=== PATIENT | female | born 1955 | race Caucasian/White ===

== ENCOUNTER → 2016-10-16 | Outpatient (CLI) | payer OTHER ==
[~2016-10-16] MED LIST: ACHD5005 PO; ATR20T PO; CPR500T PO; DIPH1TAB45 PO; ENAL10TA PO; JUNEL PO; OTC ALLERGY MEDS
--- NOTE | 2016-10-17 20:00 | Diagnostic Imaging Report ---
Bilateral screening mammogram The current study was also evaluated with a Computer Aided Detection (CAD) system. Indication: Screening. No current complaints stated on the questionnaire. COMPARISON: 10/18/15 FINDINGS: The breasts are composed of heterogeneously dense parenchyma which may decrease mammographic sensitivity. There is similar fibroglandular pattern with no developing mass, architectural distortion or suspicious cluster of calcifications seen. Allowing for technique and positional differences, no suspicious change is seen. IMPRESSION: No significant change. ACR BI-RADS Category 2: Benign findings. Result letter will be mailed to the patient. Note: At least 10% of breast cancer is not imaged by mammography. Dictated by: Dictated on workstation # [id number]
== END ==
LOC: RAD 10:55
PROVIDERS: ATTEND Obstetrics & Gynecology
DX: Z12.31 Encounter for screening mammogram for malignant neoplasm of breast (principal)
CPT/HCPCS: 77067

== ENCOUNTER → 2017-10-27 | Outpatient (CLI) | payer OTHER ==
--- NOTE | 2017-10-27 11:15 | Diagnostic Imaging Report ---
INDICATION: Routine screening. COMPARISON: 10/16/2016 and 09/08/2015. TECHNIQUE: 2D and 3D bilateral screening mammography was performed with CAD. FINDINGS: Both breasts remain heterogeneously dense, limiting the sensitivity of mammography. The parenchymal pattern appears stable. No mass or malignant appearing microcalcifications are seen. The axillae are unremarkable. IMPRESSION: No mammographic features suspicious for malignancy are identified. ACR BI-RADS Category 1: Negative. Result letter will be mailed to the patient. Note: At least 10% of breast cancer is not imaged by mammography. Dictated by: Dictated on workstation # [id number]
== END ==
LOC: RAD 08:22
PROVIDERS: ATTEND Obstetrics & Gynecology
DX: Z12.31 Encounter for screening mammogram for malignant neoplasm of breast (principal)
CPT/HCPCS: 77067

== ENCOUNTER → 2017-11-05 | Outpatient (CLI) | payer OTHER ==
--- NOTE | 2017-11-05 12:32 | Diagnostic Imaging Report ---
EXAMINATION: Magnetic resonance imaging of the right knee without intravenous contrast DATE: November 05, 2017. COMPARISON: None. INDICATION: 62-year-old female, right knee pain. TECHNIQUE: Multiplanar, multisequence non contrast enhanced MR imaging was accomplished. FINDINGS: MENISCI: There is a small oblique tear with inferior surface extension involving the body of the medial meniscus best illustrated on coronal proton density sequence image 15. There is signal in the posterior horn of the medial meniscus which does not contact an articular surface and does not meet strict MRI criteria for tear. There is a small free edge tear of the body of the lateral meniscus. LIGAMENTS AND TENDONS: The anterior and posterior cruciate ligaments are intact. The medial collateral ligament is intact. The iliotibial band, mid third lateral capsular ligament, fibular collateral ligament, biceps femoris tendon and conjoined tendon are intact. The quadriceps tendon and patella ligament are intact. JOINT: There is an area of near full-thickness cartilage defect involving the median patellar ridge and lateral aspect of the medial patellar facet with subjacent full-thickness cartilage flap at the bone cartilage interface of the median patellar ridge measuring 5 mm in transverse dimension. The medial and lateral compartment cartilage appears grossly intact. There is no large knee joint effusion. There are low signal foci in the posterior aspect of the knee joint best illustrated on sagittal proton density fat saturation sequence image 16 measuring up to approximately 6 x 3 mm in size likely relating to intra-articular bodies. BONE: There is no acute fracture, bone contusion, or evidence of osteonecrosis. BURSAE AND SOFT TISSUES: There is a ganglion cyst near the posterior knee joint capsule measuring 13 x 9 x 13 mm in size. There is minimal fluid in the popliteal fossa without sizable Roth's cysts. The additional soft tissues are unremarkable in appearance. IMPRESSION: 1. Oblique tear with inferior surface extension involving the body of the medial meniscus. Signal within the posterior horn of the medial meniscus not meeting strict MRI criteria for tear. 2. Small free edge tear involving the body of the lateral meniscus. 3. Intact anterior and posterior cruciate ligaments. Additional ligaments and tendons are intact. 4. Moderate patellofemoral compartment arthritis as described above. Intra-articular bodies posteriorly measuring up to 6 x 3 mm in size. 5. No acute fracture, bone contusion, or evidence of osteonecrosis. Dictated by: Dictated on workstation # [id number]
== END ==
LOC: RAD 10:14
PROVIDERS: ATTEND Orthopaedic Surgery
DX: S83.241A Other tear of medial meniscus, current injury, right knee, initial encounter (principal); S83.281A Other tear of lateral meniscus, current injury, right knee, initial encounter; M17.11 Unilateral primary osteoarthritis, right knee
CPT/HCPCS: 73721

== ENCOUNTER → 2018-11-11 | Outpatient (CLI) | payer OTHER ==
--- NOTE | 2018-11-11 17:55 | Diagnostic Imaging Report ---
INDICATION: Routine screening. Comparison is made with prior mammograms from 10/27/2017 and 10/16/2016. 2-D and 3-D bilateral screening mammography was performed. The current study was also evaluated with a Computer Aided Detection (CAD) system. 3-D tomosynthesis was also performed and reviewed. FINDINGS: Both breasts are heterogeneously dense, limiting the sensitivity of mammography. No mass or malignant-appearing microcalcifications are seen. Axillae are unremarkable. IMPRESSION: No mammographic features suspicious for malignancy are identified. ACR BI-RADS Category 1: Negative. Result letter will be mailed to the patient. Note: At least 10% of breast cancer is not imaged by mammography. Dictated by: Dictated on workstation # [id number]
== END ==
LOC: RAD 14:41
PROVIDERS: ATTEND Obstetrics & Gynecology
DX: Z12.31 Encounter for screening mammogram for malignant neoplasm of breast (principal)
CPT/HCPCS: 77067

== ENCOUNTER 2019-06-20 18:49 | Emergency (ER) | payer OTHER ==
[~2019-06-20] VITALS: Ht 157 cm; Wt 72.1 kg
[2019-06-20] MEDS ORDERED: ASPI-586 PO (19:16)
[2019-06-20] MEDS ORDERED: VENL25TA2 PO (19:17)
[2019-06-20] MEDS ORDERED: NS IV 1000 ML 1,000 ML IV ONE ×2 (19:36→20:48)
--- NOTE | 2019-06-20 19:41 | ED General ---
General Chief Complaint: General Problems/Pain Stated Complaint: HEADACHE/BODY ACHES/POSS FEVER Nursing Triage Note: Patient ambulatory to ER room 10 with complaint of feeling ill x 5 days. Patient states she has had black stools, body aches, headache, cough, nausea, fever and feeling lightheaded x 5 days. Patient states she has been taking OTC Tylenol cold and flu with no relief. Nursing Sepsis Screen: No Definite Risk Source of Information: Patient Exam Limitations: No Limitations History of Present Illness Date Seen by Provider: Jun 20, 2019 Time Seen by Provider: 19:41 Initial Comments 64-year-old female patient presents with complaints of not feeling well for proximally 5 days. Patient reports generalized body aches, headache, cough, nasal congestion, nausea, and fever initially. Patient states that most of the symptoms have resolved but states she is now having dark stools. She does have a h/o an upper GI bleed d/t a gastric ulcer. she does report heartburn and epigastric pain over the last few weeks. Timing/Duration: 4-5 Days, Changing Over Time Modifying Factors: worse with Medication (no improvement with Tylenol) Allergies and Home Medications Allergies Coded Allergies: Lincomycin HCl (Unverified Allergy, Unknown, 09/30/10) Codeine (Verified Allergy, 09/26/10) Lidocaine (Verified Allergy, 09/26/10) fosinopril sodium (Verified Allergy, 09/26/10) methocarbamol (Verified Allergy, 09/26/10) Home Medications Aspirin 81 Mg Tablet.dr, 81 MG PO DAILY, (Reported) Atorvastatin 20 Mg Tablet, 1 EACH PO DAILY, (Reported) Ciprofloxacin 500 Mg Tablet, 1 TAB PO BID Prescribed by: DEIRDRE MOHAN on 09/30/101555 Diphenoxylate Hcl/Atrop Sulf 1 Tab Tablet, 1 EACH PO EVERY 4HRS, (Reported) Enalapril Maleate 10 Mg Tablet, 10 MG PO DAILY, (Reported) Hydrocodone Bit/Acetaminophen 1 Each Tablet, 1-2 EACH PO Q6H PRN Prescribed by: DEIRDRE MOHAN on 09/30/101555 Nitrofurantoin Monohyd/M-Cryst 100 Mg Capsule, 1 TAB PO BID Prescribed by: JHOAN MONTES on 06/20/192115 Omeprazole 40 Mg Capsule.dr, 40 MG PO BID Prescribed by: JHOAN MONTES on 06/20/192115 Ondansetron 8 Mg Tab.rapdis, 8 MG PO Q6H PRN for NAUSEA/VOMITING Prescribed by: JHOAN Gemini JYOTI on 06/20/192115 Venlafaxine HCl 25 Mg Tablet, 25 MG PO DAILY, (Reported) [] , 1 TAB PO DAILY, (Reported) [Otc Allergy Meds] , PRN, (Reported) Patient Home Medication List Home Medication List Reviewed: Yes Review of Systems Review of Systems Constitutional: see HPI EENTM: see HPI Respiratory: see HPI Cardiovascular: No chest pain, No edema, No palpitations, No syncope Gastrointestinal: see HPI, abdominal pain (epigastric pain); No constipation, No diarrhea, No dysphagia, No hematemesis; heartburn; No jaundice; loss of appetite, melena, nausea; No vomiting Genitourinary: No decreased output, No dysuria, No frequency, No hematuria, No pain Musculoskeletal: other (generalized body aches) Psychiatric/Neurological: Headache; Denies Numbness, Denies Paresthesia, Denies Tingling, Denies Weakness Hematologic/Lymphatic: No Symptoms Reported Immunological/Allergic: no symptoms reported All Other Systems Reviewed Negative Unless Noted: Yes (Negative excepted noted.) Past Gtjuxca-Gbnwub-Eporjj Hx Past Med/Social Hx: Reviewed Nursing Past Med/Soc Hx Patient Social History Alcohol Use: Denies Use Recreational Drug Use: No Smoking Status: Current Everyday Smoker Type Used: Cigarettes 2nd Hand Smoke Exposure: Yes Recent Foreign Travel: No Contact w/Someone Who Travel: No Recent Infectious Disease Expo: No Recent Hopitalizations: No Immunizations Up To Date PED Vaccines UTD: Yes Date of Influenza Vaccine: Feb 16, 2019 Seasonal Allergies Seasonal Allergies: No Past Medical History Surgeries: Yes (lap kami 2004, lap carolyn 2003) Gallbladder Respiratory: No Cardiac: Yes High Cholesterol Neurological: No Reproductive Disorders: No Genitourinary: No Gastrointestinal: Yes (hx celiac disease) Gastroesophageal Reflux, Gastrointestinal Bleed, Ulcer Musculoskeletal: No Endocrine: No HEENT: No Cancer: No Psychosocial: No Integumentary: No Blood Disorders: No Family Medical History Reviewed Nursing Family Hx No Pertinent Family Hx Physical Exam Vital Signs Vital Signs - First Documented 06/20/19 18:55 Temp 36.8 Pulse 92 Resp 16 B/P (MAP) 142/92 (109) Pulse Ox 96 O2 Delivery Room Air Capillary Refill : Less Than 3 Seconds Height, Weight, BMI Height: '" Weight: lbs. oz. kg; 29.00 BMI Method: General Appearance: No Apparent Distress, WD/WN Eyes: Bilateral Eye Normal Inspection, Bilateral Eye PERRL, Bilateral Eye EOMI HEENT: PERRL/EOMI, Pharyngeal Erythema; No Scleral Icterus (L), No Scleral Icterus (R), No Tonsillar Exudate; Other (mild nasal congestion. Dry oral mucosa noted.) Neck: Normal Inspection, Non Tender, Supple Respiratory: Lungs Clear, Normal Breath Sounds, No Accessory Muscle Use, No Respiratory Distress Cardiovascular: Regular Rate, Rhythm, No Edema, No Gallop, No JVD, No Murmur, Normal Peripheral Pulses Gastrointestinal: Normal Bowel Sounds, No Organomegaly, Soft; No Distended, No Guarding, No Hepatomegaly, No Rebound; Tenderness (mild epigastric tenderness) Back: Normal Inspection, No CVA Tenderness Extremity: Normal Capillary Refill, No Calf Tenderness, No Pedal Edema Neurologic/Psychiatric: Alert, Oriented x3, Normal Mood/Affect Skin: Normal Color, Warm/Dry Progress/Results/Core Measures Suspected Sepsis Recent Fever Within 48 Hours: Yes Infection Criteria Present: None New/Unexplained Altered Menta: No Sepsis Screen: No Definite Risk SIRS Temperature: Pulse: 92 Respiratory Rate: 16 Laboratory Tests 06/20/19 19:55: White Blood Count 11.7H Blood Pressure 142 /92 Mean: 109 Laboratory Tests 06/20/19 19:55: Creatinine 0.99, INR Comment 0.9, Platelet Count 336, Total Bilirubin 0.3 Results/Orders Lab Results Laboratory Tests Test 06/20/19 19:55 06/20/19 20:03 Range/Units White Blood Count 11.7 H 4.3-11.0 10^3/uL Red Blood Count 4.82 4.35-5.85 10^6/uL Hemoglobin 15.1 11.5-16.0 G/DL Hematocrit 46 35-52 % Mean Corpuscular Volume 96 80-99 FL Mean Corpuscular Hemoglobin 31 25-34 PG Mean Corpuscular Hemoglobin Concent 33 32-36 G/DL Red Cell Distribution Width 13.2 10.0-14.5 % Platelet Count 336 130-400 10^3/uL Mean Platelet Volume 10.7 H 7.4-10.4 FL Neutrophils (%) (Auto) 53 42-75 % Lymphocytes (%) (Auto) 30 12-44 % Monocytes (%) (Auto) 10 0-12 % Eosinophils (%) (Auto) 6 0-10 % Basophils (%) (Auto) 1 0-10 % Neutrophils # (Auto) 6.2 1.8-7.8 X 10^3 Lymphocytes # (Auto) 3.6 1.0-4.0 X 10^3 Monocytes # (Auto) 1.2 H 0.0-1.0 X 10^3 Eosinophils # (Auto) 0.7 H 0.0-0.3 10^3/uL Basophils # (Auto) 0.1 0.0-0.1 10^3/uL Prothrombin Time 12.2 12.2-14.7 SEC INR Comment 0.9 0.8-1.4 Activated Partial Thromboplast Time 34 24-35 SEC Sodium Level 140 135-145 MMOL/L Potassium Level 4.2 3.6-5.0 MMOL/L Chloride Level 106 98-107 MMOL/L Carbon Dioxide Level 23 21-32 MMOL/L Anion Gap 11 5-14 MMOL/L Blood Urea Nitrogen 13 7-18 MG/DL Creatinine 0.99 0.60-1.30 MG/DL Estimat Glomerular Filtration Rate 57 BUN/Creatinine Ratio 13 Glucose Level 143 H 70-105 MG/DL Calcium Level 9.9 8.5-10.1 MG/DL Corrected Calcium 9.7 8.5-10.1 MG/DL Total Bilirubin 0.3 0.1-1.0 MG/DL Aspartate Amino Transf (AST/SGOT) 28 5-34 U/L Alanine Aminotransferase (ALT/SGPT) 39 0-55 U/L Alkaline Phosphatase 118 40-136 U/L Total Protein 7.4 6.4-8.2 GM/DL Albumin 4.2 3.2-4.5 GM/DL Urine Color YELLOW Urine Clarity SL CLOUDY Urine pH 6.5 5-9 Urine Specific [place] 1.010 L 1.016-1.022 Urine Protein NEGATIVE NEGATIVE Urine Glucose (UA) NEGATIVE NEGATIVE Urine Ketones NEGATIVE NEGATIVE Urine Nitrite POSITIVE H NEGATIVE Urine Bilirubin NEGATIVE NEGATIVE Urine Urobilinogen 0.2 < = 1.0 MG/DL Urine Leukocyte Esterase 3+ H NEGATIVE Urine RBC (Auto) TRACE-L NEGATIVE Urine RBC RARE /HPF Urine WBC 10-25 H /HPF Urine Squamous Epithelial Cells 5-10 /HPF Urine Renal Epithelial Cells 5-10 /HPF Urine Crystals NONE /LPF Urine Amorphous Sediment MOD [place]ADE[place] URATES H /LPF Urine Bacteria FEW H /HPF Urine Casts NONE /LPF Urine Mucus NEGATIVE /LPF Urine Culture Indicated YES Micro Results Microbiology 06/20/19 Influenza Types A,B Antigen (PARAMJIT) - Final, Complete My Orders Orders - JHOAN MONTES Ed Iv/Invasive Line Start (06/20/19 19:36) Cbc With Automated Diff (06/20/19 19:36) Comprehensive Metabolic Panel (06/20/19 19:36) Protime With Inr (06/20/19 19:36) Partial Thromboplastin Time (06/20/19 19:36) Ua Culture If Indicated (06/20/19 19:36) Ondansetron Injection (Zofran Injectio (06/20/19 19:45) Ed Iv/Invasive Line Start (06/20/19 19:36) Ns Iv 1000 Ml (Sodium Chloride 0.9%) (06/20/19 19:36) Pantoprazole Injection (Protonix Injecti (06/20/19 19:45) Urine Culture (06/20/19 20:03) Ceftriaxone For Iv Use (Rocephin For I (06/20/19 20:45) Oxymetazoline 0.05% Nasal Manuel Garcia Ii (Afrin 0. (06/20/19 21:00) Ns Iv 1000 Ml (Sodium Chloride 0.9%) (06/20/19 20:48) Acetaminophen Tablet (Tylenol Tablet) (06/20/19 20:48) Medications Given in ED Current Medications Medications Dose Ordered Sig/Jany Route Start Time Stop Time Status Last Admin Dose Admin Ceftriaxone Sodium 1000 mg/ Sterile Water 10 ml @ 200 mls/hr ONCE ONCE IV 06/20/19 20:45 06/20/19 20:47 DC 06/20/19 20:39 200 MLS/HR Ondansetron HCl 4 mg ONCE ONCE IVP 06/20/19 19:45 06/20/19 19:46 DC 06/20/19 20:01 4 MG Pantoprazole 40 mg ONCE ONCE IV 06/20/19 19:45 06/20/19 19:46 DC 06/20/19 20:01 40 MG Sodium Chloride 1,000 ml @ 0 mls/hr Q0M ONCE IV 06/20/19 19:36 06/20/19 19:39 DC 06/20/19 20:00 1,000 MLS/HR Sodium Chloride 1,000 ml @ 0 mls/hr Q0M ONCE IV 06/20/19 20:48 06/20/19 20:51 DC 06/20/19 20:56 1,000 MLS/HR Vital Signs/I&O 06/20/19 06/20/19 18:55 21:36 Temp 36.8 36.6 Pulse 92 57 Resp 16 14 B/P (MAP) 142/92 (109) 152/90 Pulse Ox 96 98 O2 Delivery Room Air Room Air Capillary Refill : Less Than 3 Seconds Blood Pressure Mean: 109 Departure Communication (Admissions) Patient seen and evaluated. Labs obtained. Patient given normal saline, Zofran, Protonix, and Tylenol with improvement in symptoms. Patient was noted to have a UTI and given 1 g Rocephin in the emergency department. Patient reports feeling much better with the medications and IV fluids. We'll plan for discharge to home with follow-up as an outpatient with Dr. Garcia. Have discussed with the patient that she will most likely need to see a general surgeon for upper endoscopy. Patient was given Dr. Quezada's number. She will discuss this with Dr. Garcia. Impression Primary Impression: Urinary tract infection Qualified Codes: N30.00 - Acute cystitis without hematuria Additional Impressions: Gastritis Qualified Codes: K29.70 - Gastritis, unspecified, without bleeding Melena Viral upper respiratory infection Disposition: 01 HOME, SELF-CARE Condition: Improved Departure-Patient Inst. Decision time for Depature: 21:10 Referrals: JUSTICE GARCIA DO (PCP) Primary Care Physician JODI GARCIA, SORAYA (Family) Primary Care Physician IZABELLA QUEZADA DO Patient Instructions: Gastritis (DC), Gastrointestinal Bleeding, Ulcer and Gastritis Diet, Urinary Tract Infection, Adult (DC) Add. Discharge Instructions: All discharge instructions reviewed with patient and/or family. Voiced understanding. Medications as instructed. Tylenol over the counter as directed for pain or fever. No ibuprofen, Aleve, or aspirin. Avoid spicy foods, fatty foods, carbonated beverages, caffeinated beverages. Do not eat within 2 hours of lying down. Follow-up with your family practitioner for recheck as an outpatient. They may refer you to a general surgeon for upper endoscopy. Return to the emergency department for worsened symptoms, fever, black stools, rectal bleeding, abdominal swelling, abdominal pain, vomiting blood, or any other concerns. Scripts Nitrofurantoin Monohyd/M-Cryst (Macrobid 100 mg Capsule) 100 Mg Capsule 1 TAB PO BID, #14 CAP 0 Refills Prov: JHOAN MONTES 06/20/19 Ondansetron (Ondansetron Odt) 8 Mg Tab.rapdis 8 MG PO Q6H PRN for NAUSEA/VOMITING, #10 TAB 0 Refills Prov: JHOAN MONTES 06/20/19 Omeprazole (Omeprazole) 40 Mg Capsule.dr 40 MG PO BID, #30 CAP 0 Refills Prov: JHOAN MONTES 06/20/19 Work/School Note: Work Release Form Date Seen in the Emergency Department: Jun 20, 2019 Return to Work: Jun 23, 2019 Restrictions: Return-No Fever (24hrs), Return-No Vomiting(24hrs) JHOAN MONTES Jun 20, 2019 19:41
[2019-06-20] MEDS ORDERED: ONDANSETRON 4 MG/2 ML (SDV) Z0FRAN IVP ONE (19:45)
[2019-06-20] MEDS ORDERED: PANTOPRAZOLE 40 MG (PROTONIX) VIAL IV ONE (19:45)
[2019-06-20 20:04] LABS: BASOPHILS # (AUTO) 0.1 10^3/uL (0.0-0.1); BASOPHILS % (AUTO) 1 % (0-10); EOSINOPHILS # (AUTO) 0.7 10^3/uL (0.0-0.3); EOSINOPHILS % (AUTO) 6 % (0-10); HEMATOCRIT 46 % (35-52); HEMOGLOBIN 15.1 G/DL (11.5-16.0); LYMPHOCYTES # (AUTO) 3.6 X 10^3 (1.0-4.0); LYMPHOCYTES % (AUTO) 30 % (12-44); MEAN CORPUSCULAR HEMOGLOBIN 31 PG (25-34); MEAN CORPUSCULAR HGB CONC 33 G/DL (32-36); MEAN CORPUSCULAR VOLUME 96 FL (80-99); MEAN PLATELET VOLUME 10.7 FL (7.4-10.4); MONOCYTES # (AUTO) 1.2 X 10^3 (0.0-1.0); MONOCYTES % (AUTO) 10 % (0-12); NEUTROPHILS # (AUTO) 6.2 X 10^3 (1.8-7.8); NEUTROPHILS % (AUTO) 53 % (42-75); PLATELET COUNT 336 10^3/uL (130-400); RED CELL DISTRIBUTION WIDTH 13.2 % (10.0-14.5); WHITE BLOOD COUNT 11.7 10^3/uL (4.3-11.0)
[2019-06-20 20:11] LABS: BILIRUBIN,URINE NEGATIVE (NEGATIVE); CLARITY,URINE SL CLOUDY; COLOR,URINE YELLOW; GLUCOSE, URINE (UA) NEGATIVE (NEGATIVE); KETONES,URINE NEGATIVE (NEGATIVE); LEUKOCYTE ESTERASE ,URINE 3+ (NEGATIVE); NITRITE,URINE POSITIVE (NEGATIVE); PH,URINE 6.5 (5-9); PROTEIN,URINE NEGATIVE (NEGATIVE)
[2019-06-20 20:16] LABS: INR 0.9 (0.8-1.4); PROTHROMBIN TIME PATIENT 12.2 SEC (12.2-14.7)
[2019-06-20 20:24] LABS: ALBUMIN 4.2 GM/DL (3.2-4.5); BILIRUBIN,TOTAL 0.3 MG/DL (0.1-1.0); CALCIUM 9.9 MG/DL (8.5-10.1); CREATININE SERUM 0.99 MG/DL (0.60-1.30); POTASSIUM 4.2 MMOL/L (3.6-5.0); TOTAL PROTEIN 7.4 GM/DL (6.4-8.2)
[2019-06-20 20:26] LABS: BACTERIA,URINE FEW /HPF; RBC,URINE RARE /HPF
[2019-06-20 20:27] LABS: AMORPHOUS SEDIMENT,UR MOD AMOR URATES /LPF
[2019-06-20] MEDS ORDERED: cefTRIAXone FOR IV USE 1,000 MG in WATER (STERILE) FOR INJECTION 10 ML IV ONE (20:45)
--- NOTE | 2019-06-20 20:45 | NUR ---
Patient awake and alert, spouse at bedside. Patient complains of headache and right ear pain. Tennille Gipson [employer]ENCE [employer] notified.
[2019-06-20] MEDS ORDERED: ACETAMINOPHEN 500 MG TAB (TYLENOL) PO STA (20:48)
[2019-06-20] MEDS ORDERED: OXYMETAZOLINE (AFRIN) 0.05% NA 30 ML BTL SCH (21:00)
[2019-06-20] MEDS ORDERED: NITR-65 PO (21:16)
[2019-06-20] MEDS ORDERED: OMEP40CA27 PO (21:16)
[2019-06-20] MEDS ORDERED: ONDA8TAB13 PO (21:16)
[2019-06-20 21:36] VITALS: BP 152/90
== END 2019-06-20 21:38 | disposition home or self-care (01) ==
LOC: EDUNIT# 18:49 → ER 18:50
DX: N39.0 Urinary tract infection, site not specified (principal); K29.71 Gastritis, unspecified, with bleeding; E78.00 Pure hypercholesterolemia, unspecified; K21.9 Gastro-esophageal reflux disease without esophagitis; F17.210 Nicotine dependence, cigarettes, uncomplicated; J06.9 Acute upper respiratory infection, unspecified; Z88.1 Allergy status to other antibiotic agents; Z88.5 Allergy status to narcotic agent; Z88.8 Allergy status to other drugs, medicaments and biological substances; Z79.82 Long term (current) use of aspirin
CPT/HCPCS: 36415; 80053; 81000; 85025; 85610; 85730; 87077; 87088; 87804; 96361; 96374; 96375

== ENCOUNTER → 2019-11-26 | Outpatient (CLI) | payer OTHER ==
[~2019-11-26] MED LIST changes: +ASPI-586 PO; +NITR-65 PO; +OMEP40CA27 PO; +ONDA8TAB13 PO; +VENL25TA2 PO
--- NOTE | 2019-11-26 11:13 | Diagnostic Imaging Report ---
INDICATION: Routine screening. COMPARISON is made with prior mammograms from 11/11/2018 and 10/27/2017. 2-D and 3-D bilateral screening mammography was performed with CAD. Both breasts are heterogeneously dense, limiting the sensitivity of mammography. The parenchymal pattern is stable. No mass or malignant appearing microcalcifications are seen. Axillae are unremarkable. IMPRESSION: BI-RADS Category 1 No mammographic features suspicious for malignancy are identified. Dictated by: Dictated on workstation # [id number]
== END ==
LOC: RAD 08:32
PROVIDERS: ATTEND Obstetrics & Gynecology
DX: Z12.31 Encounter for screening mammogram for malignant neoplasm of breast (principal)
CPT/HCPCS: 77063; 77067

== ENCOUNTER 2020-01-13 08:00 | Emergency (ER) | payer OTHER ==
[~2020-01-13] VITALS: Ht 157.4 cm; Wt 81.8 kg
[2020-01-13] MEDS ORDERED: FLUC150T2 (08:18)
[2020-01-13] MEDS ORDERED: AZIT250T12 (08:18)
[2020-01-13] MEDS ORDERED: ONDANSETRON 4 MG/2 ML (SDV) Z0FRAN ONE (08:29)
[2020-01-13] MEDS ORDERED: NS IV 1000 ML 1,000 ML ONE (08:29)
[2020-01-13] MEDS: NS IV 1000 ML 1,000 ML IV STA (08:32)
[2020-01-13] MEDS: ONDANSETRON 4 MG/2 ML (SDV) Z0FRAN IVP ONE (08:32)
--- NOTE | 2020-01-13 08:38 | ED General ---
General Chief Complaint: General Problems/Pain Stated Complaint: HEADACHE;DIZZINESS;WEAKNESS Nursing Triage Note: AMB TO ROOM REPORTS THAT SINCE FRI HAS HAD A HEADACHE AND DIZZY. SAW DR GARCIA YESTERDAY WAS DX WITH SINUS INFECTION AND PLACED ON Z PACK. HAS NOT TAKEN ANYTHING FOR HER HEADACHE. REPORTS IF LYING STILL NOT DIZZY. HAD SAMETHING LAST YEAR Nursing Sepsis Screen: No Definite Risk Source of Information: Patient Exam Limitations: No Limitations (RITU PULIDO) History of Present Illness Date Seen by Provider: Jan 13, 2020 Time Seen by Provider: 08:11 Initial Comments This is a 64 y/o F who presents to the ED with N and "dry heaving" x3 days stating "I dry heaved for 1.5hrs this AM". States her sx onset 3 days with sudden onset "room spinning" dizziness lasting 1-2mins which exacerbated with laying down. Since then she has had N and "dry heaving" every morning. Denies Dizziness at the time of evaluation, but notes weakness "from dry heaving this morning" & R-sided, 09/25 severity DESAI w/o photophobia, aura, phonophobia, or neck stiffness. Has hx of Migraines but states this EDSAI does not feel like a migraine. She also reports some dysuria but no hematuria this weekend (4days ago) but states "not so much since the weekend". Denies Any Abd pain, blood in stool, cough, SOB, CP, F, Chills, myalgias, loss of sense of smell or taste, sore throat, or any possible exposure to COVID-19. She has Hx chronic diarrhea, denies any changes to her bowel habits. Has hx of severe Allergies and recieved Tx "allergy shot" for her allergies yesterday at Dr. Garcia's office and was also put on Azythromycin. Pt is an Active chronic smoker. No further complaints at this time. Timing/Duration: 2-3 Days Severity: Moderate Modifying Factors: improves with Other (None) Associated Systoms: No Chest Pain, No Cough; Diaphoresis (only after "dry heaving"); No Fever/Chills; Headaches; No Loss of Appetite; Nausea/Vomiting; No Shortness of Air; Weakness (RITU PULIDO) Timing/Duration: 2-3 Days Severity: Moderate Associated Systoms: No Chest Pain; Weakness (DEIRDRE MOHAN MD) Allergies and Home Medications Allergies Coded Allergies: Lincomycin HCl (Unverified Allergy, Unknown, 09/30/10) Codeine (Verified Allergy, 09/26/10) Lidocaine (Verified Allergy, 09/26/10) fosinopril sodium (Verified Allergy, 09/26/10) methocarbamol (Verified Allergy, 09/26/10) Home Medications Aspirin 81 Mg Tablet.dr, 81 MG PO DAILY, (Reported) Atorvastatin 20 Mg Tablet, 1 EACH PO DAILY, (Reported) Ciprofloxacin 500 Mg Tablet, 1 TAB PO BID Prescribed by: DEIRDRE MOHAN on 09/30/101555 Diphenoxylate Hcl/Atrop Sulf 1 Tab Tablet, 1 EACH PO EVERY 4HRS, (Reported) Enalapril Maleate 10 Mg Tablet, 10 MG PO DAILY, (Reported) Hydrocodone Bit/Acetaminophen 1 Each Tablet, 1-2 EACH PO Q6H PRN Prescribed by: DEIRDRE MOHAN on 09/30/101555 Omeprazole 40 Mg Capsule.dr, 40 MG PO BID Prescribed by: JHOAN MONTES on 06/20/192115 Ondansetron 8 Mg Tab.rapdis, 8 MG PO Q6H PRN for NAUSEA/VOMITING Prescribed by: JHOAN MONTES on 06/20/192115 Venlafaxine HCl 25 Mg Tablet, 25 MG PO DAILY, (Reported) [Junel 1.5-30] , 1 TAB PO DAILY, (Reported) [Otc Allergy Meds] , PRN, (Reported) Patient Home Medication List Home Medication List Reviewed: Yes (DEIRDRE MOHAN MD) Review of Systems Review of Systems Constitutional: No chills, No diaphoresis; dizziness; No fever; weakness EENTM: No blurred vision, No double vision, No eye pain, No vision loss, No throat pain, No throat swelling Respiratory: No cough, No dyspnea on exertion, No short of breath Cardiovascular: No chest pain, No palpitations Gastrointestinal: No abdominal pain; diarrhea (chronic); No loss of appetite, No melena; nausea, vomiting ("dry heaving") Genitourinary: dysuria; No hematuria Musculoskeletal: No muscle pain, No neck pain Skin: no symptoms reported Psychiatric/Neurological: Headache; Denies Numbness, Denies Paresthesia, Denies Tingling (RITU PULIDO) Constitutional: dizziness, weakness Gastrointestinal: No abdominal pain; diarrhea (chronic) Skin: no symptoms reported Psychiatric/Neurological: Headache; Denies Numbness, Denies Tingling (DEIRDRE MOHAN MD) All Other Systems Reviewed Negative Unless Noted: Yes (DEIRDRE MOHAN MD) Past Noixghr-Vohagh-Grskka Hx Past Med/Social Hx: Reviewed Nursing Past Med/Soc Hx (DEIRDRE MOHAN MD) Patient Social History Alcohol Use: Denies Use Recreational Drug Use: No Smoking Status: Current Everyday Smoker Type Used: Cigarettes 2nd Hand Smoke Exposure: Yes Recent Foreign Travel: No Contact w/Someone Who Travel: No Recent Infectious Disease Expo: No Recent Hopitalizations: No (RITU PULIDO) Immunizations Up To Date PED Vaccines UTD: Yes Date of Influenza Vaccine: Feb 16, 2019 (RITU PULIDO [facility]) Seasonal Allergies Seasonal Allergies: No (RITU PULIDO) Past Medical History Surgeries: Yes (lap kami 2004, lap carolyn 2003) Gallbladder Respiratory: No Cardiac: Yes High Cholesterol Neurological: No Reproductive Disorders: No Genitourinary: No Gastrointestinal: Yes (hx celiac disease) Gastroesophageal Reflux, Gastrointestinal Bleed, Ulcer Musculoskeletal: No Endocrine: No HEENT: No Cancer: No Psychosocial: No Integumentary: No Blood Disorders: No (RITU PULIDO [facility]) Family Medical History Reviewed Nursing Family Hx (DEIRDRE MOHAN MD) No Pertinent Family Hx (RITU PULIDO) Physical Exam Vital Signs Vital Signs - First Documented 01/13/20 08:10 Temp 36.6 Pulse 63 Resp 18 B/P (MAP) 148/85 (106) Pulse Ox 98 O2 Delivery Room Air (DEIRDRE MOHAN MD) Vital Signs Capillary Refill : Less Than 3 Seconds (RITU PULIDO) Height, Weight, BMI Height: '" Weight: lbs. oz. kg; 33.00 BMI Method: General Appearance: No Apparent Distress, Other (appears ill and weak) Eyes: Bilateral Eye Normal Inspection, Bilateral Eye PERRL, Bilateral Eye EOMI HEENT: PERRL/EOMI, TMs Normal, Other (no nystagmus; pharyngeal erythema with cobblestoning) Neck: Normal Inspection, Non Tender, Supple Respiratory: Chest Non Tender, Lungs Clear, Normal Breath Sounds, No Accessory Muscle Use, No Respiratory Distress; No Crackles, No Wheezing Cardiovascular: Regular Rate, Rhythm, No Edema, No Gallop, No Murmur, Normal Peripheral Pulses Gastrointestinal: Normal Bowel Sounds, Non Tender Back: Normal Inspection, No CVA Tenderness Neurologic/Psychiatric: Alert, Oriented x3, No Motor/Sensory Deficits, Normal Mood/Affect; No Disoriented; Other (negative Yusra-Hallpike) Skin: Warm/Dry, Pallor Lymphatic: No Adenopathy ([facility] General Appearance: No Apparent Distress, Other (appears ill and weak) HEENT: PERRL/EOMI, TMs Normal Neck: Non Tender, Supple Respiratory: Lungs Clear, Normal Breath Sounds Cardiovascular: Regular Rate, Rhythm, No Murmur Gastrointestinal: Non Tender, Soft Back: Normal Inspection, No CVA Tenderness Extremity: Non Tender, No Calf Tenderness, No Pedal Edema Neurologic/Psychiatric: Alert, Oriented x3 Skin: Warm/Dry, Pallor (DEIRDRE MOHAN MD) Progress/Results/Core Measures Suspected Sepsis Recent Fever Within 48 Hours: No Infection Criteria Present: None New/Unexplained Altered Menta: No Sepsis Screen: No Definite Risk SIRS Temperature: Pulse: 63 Respiratory Rate: 18 Laboratory Tests 01/13/20 08:28: White Blood Count 14.5H Blood Pressure 148 /85 Mean: 106 Laboratory Tests 01/13/20 08:28: Creatinine 1.02, Platelet Count 298, Total Bilirubin 0.5 ([facility]) Results/Orders Lab Results Laboratory Tests Test 01/13/20 08:28 01/13/20 09:33 Range/Units White Blood Count 14.5 H 4.3-11.0 10^3/uL Red Blood Count 4.36 4.35-5.85 10^6/uL Hemoglobin 13.8 11.5-16.0 G/DL Hematocrit 42 35-52 % Mean Corpuscular Volume 97 80-99 FL Mean Corpuscular Hemoglobin 32 25-34 PG Mean Corpuscular Hemoglobin Concent 33 32-36 G/DL Red Cell Distribution Width 13.7 10.0-14.5 % Platelet Count 298 130-400 10^3/uL Mean Platelet Volume 11.6 H 7.4-10.4 FL Neutrophils (%) (Auto) 82 H 42-75 % Lymphocytes (%) (Auto) 10 L 12-44 % Monocytes (%) (Auto) 6 0-12 % Eosinophils (%) (Auto) 2 0-10 % Basophils (%) (Auto) 0 0-10 % Neutrophils # (Auto) 11.9 H 1.8-7.8 X 10^3 Lymphocytes # (Auto) 1.5 1.0-4.0 X 10^3 Monocytes # (Auto) 0.8 0.0-1.0 X 10^3 Eosinophils # (Auto) 0.3 0.0-0.3 10^3/uL Basophils # (Auto) 0.1 0.0-0.1 10^3/uL Neutrophils % (Manual) 81 % Lymphocytes % (Manual) 13 % Monocytes % (Manual) 5 % Basophils % (Manual) 1 % Spherocytes SLIGHT Sodium Level 138 135-145 MMOL/L Potassium Level 5.2 H 3.6-5.0 MMOL/L Chloride Level 104 98-107 MMOL/L Carbon Dioxide Level 23 21-32 MMOL/L Anion Gap 11 5-14 MMOL/L Blood Urea Nitrogen 12 7-18 MG/DL Creatinine 1.02 0.60-1.30 MG/DL Estimat Glomerular Filtration Rate 55 BUN/Creatinine Ratio 12 Glucose Level 113 H 70-105 MG/DL Calcium Level 9.2 8.5-10.1 MG/DL Corrected Calcium 9.2 8.5-10.1 MG/DL Magnesium Level 2.3 1.6-2.4 MG/DL Total Bilirubin 0.5 0.1-1.0 MG/DL Aspartate Amino Transf (AST/SGOT) 28 5-34 U/L Alanine Aminotransferase (ALT/SGPT) 35 0-55 U/L Alkaline Phosphatase 108 40-136 U/L C-Reactive Protein High Sensitivity 0.13 0.00-0.50 MG/DL Total Protein 7.8 6.4-8.2 GM/DL Albumin 4.0 3.2-4.5 GM/DL Urine Color YELLOW Urine Clarity CLEAR Urine pH 7.0 5-9 Urine Specific [place] 1.010 L 1.016-1.022 Urine Protein TRACE H NEGATIVE Urine Glucose (UA) NEGATIVE NEGATIVE Urine Ketones NEGATIVE NEGATIVE Urine Nitrite NEGATIVE NEGATIVE Urine Bilirubin NEGATIVE NEGATIVE Urine Urobilinogen 0.2 < = 1.0 MG/DL Urine Leukocyte Esterase 2+ H NEGATIVE Urine RBC (Auto) TRACE-I NEGATIVE (DEIRDRE MOHAN MD) My Orders Orders - DEIRDRE MOHAN MD Ns Iv 1000 Ml (Sodium Chloride 0.9%) (01/13/20 08:29) Ondansetron Injection (Zofran Injectio (01/13/20 08:29) Cbc With Automated Diff (01/13/20 08:36) Comprehensive Metabolic Panel (01/13/20 08:36) Hs C Reactive Protein (01/13/20 08:36) Lactic Acid Analyzer (01/13/20 08:36) Blood Culture (01/13/20 08:36) Ondansetron Injection (Zofran Injectio (01/13/20 08:45) Ns Iv 1000 Ml (Sodium Chloride 0.9%) (01/13/20 08:36) Ed Iv/Invasive Line Start (01/13/20 08:36) Ketorolac Injection (Toradol Injection) (01/13/20 08:38) Chest 1 View, Ap/Pa Only (01/13/20 08:38) Magnesium (01/13/20 08:49) Manual Differential (01/13/20 08:28) Urinalysis Dipstick Only (01/13/20 09:33) Urine Culture (01/13/20 10:58) (DEIRDRE MOHAN MD) Medications Given in ED Current Medications Medications Dose Ordered Sig/Jany Route Start Time Stop Time Status Last Admin Dose Admin Ondansetron HCl 4 mg ONCE ONCE IVP 01/13/20 08:45 01/13/20 08:46 DC 01/13/20 08:32 4 MG (DEIRDRE MOHAN MD) Vital Signs/I&O 01/13/20 08:10 Temp 36.6 Pulse 63 Resp 18 B/P (MAP) 148/85 (106) Pulse Ox 98 O2 Delivery Room Air (DEIRDRE MOHAN MD) Vital Signs/I&O Capillary Refill : Less Than 3 Seconds (RITU PULIDO [facility]) Blood Pressure Mean: 106 Progress Note : Time: 08:11 Progress Note Seen and evaluated. Presentation concerning for viral Gastroenteritis, UTI, PNA, and electrolyte imbalance. Will order CBC, CMP, Mg level, UA, and CXR. Will order 4mg of Zofran IV, 30mg of Ketorolac IV, and 1L NS. Will continue to monitor. @0924: Reevaluated. Pt is appears less ill/weak at this time. Reports feeling better. States her Nausea and DESAI are gone; Continues to deny dizziness. Still waiting for Urine sample. Will continue to monitor. (RITU PULIDO [facility]) Progress Note : Progress Note I have seen and evaluated the patient and agree with above except as indicated. I have directed the plan of care. Patient is here with 3 days of worsening diarrhea as well as dry heaving this morning. States that she's had several days of dizziness and was seen by her primary care doctor yesterday where she had an allergy shot which may actually be steroid shot. She was prescribed azithromycin. States overall that she has episodes of sweating when she is getting the dry heaves or diarrhea but denies chest pain with this or breathing problems. Denies COVID related symptoms or contact. Plan as above. Monitor patient. 1125: Feeling better. Concerns about urinary tract infections and patient states that she has this typically. We will go ahead and initiate treatment for that with Rocephin 1 g IV given that she's had nausea and vomiting today and continue outpatient treatment with cephalexin. This was discussed with the patient who agreed. Discharged home with return precautions. Patient verbalize understanding of instructions and agreement with plan. Previous history does reveal sensitive urinary tract infection to cephalosporins. (DEIRDRE MOHAN MD) Diagnostic Imaging Diagonstic Imaging: Xray Plain Films/CT/US/NM/MRI: chest Comments [facility], [place] NAME: MARYRIGO Aminah [facility] REC#: [id number] PT STATUS: REG ER : 1955 PHYSICIAN: DEIRDRE MOHAN MD ADMIT DATE: 01/13/20/ER Signed Date of Exam:01/13/20 CHEST 1 VIEW, AP/PA ONLY Indication: Emesis Comparison is made to study of 09/26/2010. TECHNIQUE: Single AP view of the chest is obtained. FINDINGS: Heart size and pulmonary vascularity are within normal limits, and the lungs are clear, bilaterally. IMPRESSION: Unremarkable chest. Dictated by: Dictated on workstation # [id number] Dict: 01/13/20913 Trans: 01/13/2015 [id number] Interpreted by: ROBERTO CARLOS GUILLEN MD Electronically signed by: ROBERTO CARLOS GUILLEN MD 01/13/20 0915 ([facility] Departure Impression Primary Impression: Urinary tract infection Qualified Codes: N30.00 - Acute cystitis without hematuria Additional Impressions: Dehydration Chronic diarrhea Disposition: 01 HOME, SELF-CARE Condition: Stable Departure-Patient Inst. Decision time for Depature: 11:26 (DEIRDRE MOHAN MD) Referrals: JUSTICE GARCIA DO (PCP) Primary Care Physician JODI GARCIA DNP (Family) Primary Care Physician Patient Instructions: Urinary Tract Infection, Adult (DC), Dehydration, Adult (DC), Diarrhea and Travelers' Diarrhea, Adult (DC) Add. Discharge Instructions: All discharge instructions reviewed with patient and/or family. Voiced understanding. Clear liquid or light diet for the next 24 hours and then advance as tolerated. Drink plenty of fluids. You may take Tylenol/acetaminophen 1000 mg every 8 hours as needed for fever or pain. You may take ibuprofen 400 mg every 8 hours as needed for fever or pain. Follow-up with your DrCinthia in a few days for recheck as needed. Return for worse pain, fever, vomiting, weakness, breathing problems or other concerns as needed. Scripts Ondansetron (Ondansetron Odt) 4 Mg Tab.rapdis 4 MG PO Q6H PRN for NAUSEA/VOMITING, #12 TAB 0 Refills Prov: DEIRDRE MOHAN MD 01/13/20 Cephalexin (Cephalexin) 500 Mg Tablet 500 MG PO BID, #10 TAB 0 Refills Prov: DEIRDRE MOHAN MD 01/13/20 Copy Copies To 1: JUSTICE GARCIA [facility] Jan 13, 2020 08:38 DEIRDRE MOHAN MD Jan 13, 2020 10:33
--- NOTE | 2020-01-13 08:41 | NUR ---
CALLED AND UPDATED
[2020-01-13] MEDS: KETOROLAC 30 MG/ML VIAL IVP STA (08:45)
[2020-01-13 08:53] LABS: BASOPHILS # (AUTO) 0.1 10^3/uL (0.0-0.1); BASOPHILS % (AUTO) 0 % (0-10); EOSINOPHILS # (AUTO) 0.3 10^3/uL (0.0-0.3); EOSINOPHILS % (AUTO) 2 % (0-10); HEMATOCRIT 42 % (35-52); HEMOGLOBIN 13.8 G/DL (11.5-16.0); LYMPHOCYTES # (AUTO) 1.5 X 10^3 (1.0-4.0); LYMPHOCYTES % (AUTO) 10 % (12-44); MEAN CORPUSCULAR HEMOGLOBIN 32 PG (25-34); MEAN CORPUSCULAR HGB CONC 33 G/DL (32-36); MEAN CORPUSCULAR VOLUME 97 FL (80-99); MEAN PLATELET VOLUME 11.6 FL (7.4-10.4); MONOCYTES # (AUTO) 0.8 X 10^3 (0.0-1.0); MONOCYTES % (AUTO) 6 % (0-12); NEUTROPHILS # (AUTO) 11.9 X 10^3 (1.8-7.8); NEUTROPHILS % (AUTO) 82 % (42-75); PLATELET COUNT 298 10^3/uL (130-400); RED CELL DISTRIBUTION WIDTH 13.7 % (10.0-14.5); WHITE BLOOD COUNT 14.5 10^3/uL (4.3-11.0)
[2020-01-13 08:58] LABS: POTASSIUM 5.2 MMOL/L (3.6-5.0)
[2020-01-13 08:59] LABS: CALCIUM 9.2 MG/DL (8.5-10.1)
[2020-01-13 09:01] LABS: TOTAL PROTEIN 7.8 GM/DL (6.4-8.2)
[2020-01-13 09:02] LABS: BILIRUBIN,TOTAL 0.5 MG/DL (0.1-1.0)
[2020-01-13 09:04] LABS: CREATININE SERUM 1.02 MG/DL (0.60-1.30)
--- NOTE | 2020-01-13 09:08 | NUR ---
PCXR DONE HEADACHE BETTER AND DIZZINESS
--- NOTE | 2020-01-13 09:16 | Diagnostic Imaging Report ---
Indication: Emesis Comparison is made to study of 09/26/2010. TECHNIQUE: Single AP view of the chest is obtained. FINDINGS: Heart size and pulmonary vascularity are within normal limits, and the lungs are clear, bilaterally. IMPRESSION: Unremarkable chest. Dictated by: Dictated on workstation # [id number]
[2020-01-13 09:18] LABS: BASOPHILS % (MANUAL) 1 %; LYMPHOCYTES % (MANUAL) 13 %; MONOCYTES % (MANUAL) 5 %; NEUTROPHILS % (MANUAL) 81 %; SPHEROCYTES SLIGHT
--- NOTE | 2020-01-13 10:03 | NUR ---
TO ROOM REPORTS HEADACHE BETTER AND DIZZNESS BETTER BUT NOT GONE.
--- NOTE | 2020-01-13 10:37 | NUR ---
ICE CHIPS GIVEN.
[2020-01-13 10:48] LABS: BILIRUBIN,URINE NEGATIVE (NEGATIVE); CLARITY,URINE CLEAR; COLOR,URINE YELLOW; GLUCOSE, URINE (UA) NEGATIVE (NEGATIVE); KETONES,URINE NEGATIVE (NEGATIVE); LEUKOCYTE ESTERASE ,URINE 2+ (NEGATIVE); NITRITE,URINE NEGATIVE (NEGATIVE); PROTEIN,URINE TRACE (NEGATIVE)
[2020-01-13] MEDS ORDERED: ONDA4TAB11 PO (11:28)
[2020-01-13] MEDS ORDERED: CEPH500T PO (11:28)
--- NOTE | 2020-01-13 11:32 | NUR ---
UPDATE GIVEN TO Kaylie OBRIEN
[2020-01-13] MEDS: cefTRIAXone FOR IV USE 1,000 MG in WATER (STERILE) FOR INJECTION 10 ML IV STA (11:36)
[2020-01-13 11:46] VITALS: BP 115/68
== END 2020-01-13 11:47 | disposition home or self-care (01) ==
LOC: EDUNIT# 08:00 → ER 08:02
DX: N39.0 Urinary tract infection, site not specified (principal); E86.0 Dehydration; K52.9 Noninfective gastroenteritis and colitis, unspecified; G43.909 Migraine, unspecified, not intractable, without status migrainosus; E78.00 Pure hypercholesterolemia, unspecified; K21.9 Gastro-esophageal reflux disease without esophagitis; F17.210 Nicotine dependence, cigarettes, uncomplicated; Z88.1 Allergy status to other antibiotic agents; Z88.5 Allergy status to narcotic agent; Z88.8 Allergy status to other drugs, medicaments and biological substances; Z79.82 Long term (current) use of aspirin
CPT/HCPCS: 36415; 71045; 80053; 81002; 83735; 85007; 85027; 86141; 87077; 87088

== ENCOUNTER → 2020-10-27 | Outpatient (CLI) | payer OTHER ==
[~2020-10-27] MED LIST changes: +AZIT250T12; +CEPH500T PO; +FLUC150T2; +ONDA4TAB11 PO
--- NOTE | 2020-10-27 09:56 | Diagnostic Imaging Report ---
PROCEDURE: US Bilateral lower extremity arterial. TECHNIQUE: Multiple real-time grayscale images are obtained through both lower extremity arterial systems with color Doppler imaging and color Doppler spectral analysis. INDICATION: Decreased dorsalis pedis pulses, leg cramps There are no prior studies available for comparison. There is fairly good arterial blood flow to both lower studies. Triphasic and biphasic waveforms were seen at all levels and there is no abrupt alteration of the velocities to suggest hemodynamically significant stenosis. There was blood flow in both dorsalis pedis arteries with biphasic waveforms. IMPRESSION: 1. There is fairly good arterial blood flow to both lower extremities. There is no evidence for hemodynamically significant stenosis. 2. If further imaging is desired, then CTA of the abdomen with bilateral runoffs would be recommended. Dictated by: Dictated on workstation # [id number]
== END ==
LOC: RAD 09:00
PROVIDERS: ATTEND Nurse Practitioner Family
DX: R25.2 Cramp and spasm (principal); R09.89 Other specified symptoms and signs involving the circulatory and respiratory systems
CPT/HCPCS: 93925

== ENCOUNTER → 2020-12-01 | Outpatient (CLI) | payer OTHER ==
[~2020-12-01] MED LIST changes: -OMEP40CA27 PO; +OMEP40CA6 PO
--- NOTE | 2020-12-01 11:35 | Diagnostic Imaging Report ---
Indication: Routine screening. Comparison is made with prior mammogram from 11/26/2019 and 11/11/2018. 2-D and 3-D bilateral screening mammography was performed with CAD. Both breasts are heterogeneously dense, limiting the sensitivity of mammography. No mass or malignant appearing microcalcifications are seen. Axillae are unremarkable. IMPRESSION: BI-RADS Category 1 No mammographic features suspicious for malignancy are identified. ACR BI-RADS Category 1: Negative. Result letter will be mailed to the patient. Note: At least 10% of breast cancer is not imaged by mammography. Dictated by: Dictated on workstation # [id number]
== END ==
LOC: RAD 09:00
PROVIDERS: ATTEND Nurse Practitioner Family
DX: Z12.31 Encounter for screening mammogram for malignant neoplasm of breast (principal)
CPT/HCPCS: 77063; 77067

== ENCOUNTER → 2022-06-26 | Outpatient (CLI) | payer MEDICARE, OTHER ==
[~2022-06-26] MED LIST changes: -FLUC150T2; +FLUC150T41
--- NOTE | 2022-06-26 13:52 | Diagnostic Imaging Report ---
INDICATION: Routine screening. Comparison is made with prior mammogram from 12/01/2020 and 11/26/2019. 2-D and 3-D bilateral screening mammography was performed with CAD. Both breasts are heterogeneously dense, limiting the sensitivity of mammography. The parenchymal pattern is stable. No mass or malignant-appearing microcalcifications are seen. Axillae are unremarkable. IMPRESSION: No mammographic features suspicious for malignancy are identified. ACR BI-RADS Category 1: Negative. Result letter will be mailed to the patient. Note: At least 10% of breast cancer is not imaged by mammography. BI-RADS Category 1 Dictated by: Dictated on workstation # [id number]
== END ==
LOC: RAD 10:02
PROVIDERS: ATTEND Internal Medicine
DX: Z12.31 Encounter for screening mammogram for malignant neoplasm of breast (principal)
CPT/HCPCS: 77063; 77067

== ENCOUNTER → 2022-08-12 | Outpatient (CLI) | payer MEDICARE, OTHER ==
[~2022-08-12] VITALS: Ht 157.5 cm; Wt 75.0 kg
[~2022-08-12] MED LIST changes: +LACTATED RINGERS 2,000 ML IV SCH; +ONDANSETRON 4 MG/2 ML (SDV) Z0FRAN IV PRN
[2022-08-12 12:55] VITALS: BP 131/113
[2022-08-12 12:58] LABS: HEMATOCRIT 46 % (35-52); HEMOGLOBIN 15.1 g/dL (11.5-16.0); MEAN CORPUSCULAR HEMOGLOBIN 31 pg (25-34); MEAN CORPUSCULAR HGB CONC 33 g/dL (32-36); MEAN CORPUSCULAR VOLUME 95 fL (80-99); MEAN PLATELET VOLUME 11.9 fL (9.0-12.2); PLATELET COUNT 335 10^3/uL (130-400); WHITE BLOOD COUNT 7.6 10^3/uL (4.3-11.0)
[2022-08-12 13:02] VITALS: BP 131/113
[2022-08-12 13:52] LABS: ALBUMIN 4.5 GM/DL (3.2-4.5); BILIRUBIN,TOTAL 0.4 MG/DL (0.1-1.0); CREATININE SERUM 1.07 MG/DL (0.60-1.30); MAGNESIUM 2.1 MG/DL (1.6-2.4); TOTAL PROTEIN 8.1 GM/DL (6.4-8.2)
== END ==
LOC: SDC 12:41
PROVIDERS: ATTEND Nurse Practitioner Family
DX: E86.0 Dehydration (principal); J10.1 Influenza due to other identified influenza virus with other respiratory manifestations; U07.1 COVID-19
CPT/HCPCS: 36415; 80053; 83735; 85027; 96360; 96361